=== PATIENT | female | born 2000 | race Caucasian/White ===

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

== ENCOUNTER 2019-11-25 09:42 | Outpatient (REF) | payer OTHER, SELFPAY ==
--- NOTE | 2019-11-25 09:05 | PAPFT_PTH ---
PATIENT: Ari Domingo LOC: RO U#:[id number] AGE/SX: 19/F ROOM: RE11/25/[address]: Wanda Sarabia NP : 2000 BED: DIS: 11/25/2019 SPEC #: [id number] RECD: 11/25/19 12:59 STATUS: MANISHA RECynthia #: [id number] CHICHI: 11/25/19 09:[address]: Wanda Sarabia NP DEPT: [facility] Cytology RECD BY: Ana Murray ENTERED: 11/25/19 12:59 SP TYPE: PAPFT OTHR DR: Jina Chacko Tissues: 1 - CX/ENDOCX FOR PAP SMEARS Procedures: PAP THIN PREP/[facility] Screening Comments: [id number]
== END 2019-11-25 10:02 ==
LOC: LBN 09:42
PROVIDERS: PCP Internal Medicine; Visit Provider Nurse Practitioner Women's Health
DX: Z12.4 Encounter for screening for malignant neoplasm of cervix (principal)
CPT/HCPCS: 88142

== ENCOUNTER 2019-12-13 09:13 | Outpatient (CLI) | payer OTHER, SELFPAY ==
[2019-12-16 12:40] LABS: SARS-CoV-2 RNA Undetected (Undetected); SARS-CoV-2 Specimen Source Nasopharynx
== END 2019-12-13 09:33 ==
PROVIDERS: PCP Internal Medicine; Visit Provider Advanced Practice Midwife
DX: Z11.59 Encounter for screening for other viral diseases (principal)
CPT/HCPCS: U0003

== ENCOUNTER 2020-07-29 03:34 | Outpatient (CLI) | payer BC, SELFPAY ==
[2020-07-29 14:38] LABS: TSH (W/Ref FT4) 3.25 uIU/mL (0.36-3.74)
== END 2020-07-29 03:35 | disposition home or self-care (01) ==
PROVIDERS: PCP Internal Medicine; Visit Provider Nurse Practitioner Women's Health
DX: N93.8 Other specified abnormal uterine and vaginal bleeding (principal)
CPT/HCPCS: 36415; 84443

== ENCOUNTER 2022-07-13 09:10 | Outpatient (REF) | payer OTHER, SELFPAY ==
--- NOTE | 2022-07-13 08:30 | PAPFT_PTH ---
PATIENT: Ari Domingo LOC: RO U#:[id number] AGE/SX: 22/F ROOM: RE07/13/[address]: Wanda Sarabia NP : 2000 BED: DIS: 07/13/2022 SPEC #: [id number] RECD: 07/13/22 13:04 STATUS: MANISHA REQ #: [id number] CHICHI: 07/13/22 08:[address]: Cornell ASCENCIO,Wanda DEPT: ON LICENSE OF [facility] Cytology RECD BY: Ana Murray ENTERED: 07/13/22 13:05 SP TYPE: PAPFT OTHR DR: Jina Chacko Tissues: 1 - CX/ENDOCX FOR PAP SMEARS Procedures: PAP THIN PREP/UVM Screening Comments: [id number] (CHLAMYDIA/GC)
[2022-07-14 13:45] LABS: Chlamydia Result Negative (Negative); GC Result Negative (Negative)
== END 2022-07-13 09:11 | disposition home or self-care (01) ==
LOC: LBN 09:10
PROVIDERS: PCP Internal Medicine; Visit Provider Nurse Practitioner Women's Health
DX: Z11.3 Encounter for screening for infections with a predominantly sexual mode of transmission (principal); Z12.4 Encounter for screening for malignant neoplasm of cervix
CPT/HCPCS: 87491; 87591; 88142

== ENCOUNTER 2022-12-06 10:34 | Outpatient (REF) | payer OTHER, SELFPAY ==
[2022-12-07 13:24] LABS: Chlamydia Result Negative (Negative); GC Result Negative (Negative)
== END 2022-12-06 10:35 | disposition home or self-care (01) ==
LOC: LBN 10:34
PROVIDERS: PCP Internal Medicine; Visit Provider Nurse Practitioner Women's Health
DX: N76.0 Acute vaginitis (principal); Z11.3 Encounter for screening for infections with a predominantly sexual mode of transmission
CPT/HCPCS: 87491; 87591; 87480; 87510; 87660

== ENCOUNTER 2023-07-31 14:27 | Outpatient (CLI) | payer BC, OTHER, SELFPAY ==
[2023-07-31 12:30] LABS: Abs Immature Grans 0.04 10^3/uL (0.0-0.06); Absolute Basophil Count 0.06 10^3/uL (0.0-0.2); Absolute Eosinophil Count 0.35 10^3/uL (0.0-0.7); Absolute Lymphocyte Count 2.16 10^3/uL (1.2-3.4); Absolute Monocyte Count 0.92 10^3/uL (0.1-0.8); Absolute Neutrophil Count 6.09 10^3/uL (1.2-6.7); Basophils % 0.6; Eosinophils % 3.6; HCT 41.8 % (36.0-46.0); HGB 13.7 g/dL (11.2-15.7); Immature Grans % 0.4; Lymphocytes % 22.5; MCH 28.1 pg (27.0-33.0); MCHC 32.8 % (32.0-36.0); MCV 86 fL (80-95); MPV 9.4 fL (8.0-11.0); Monocytes % 9.6; Neutrophils % 63.3; Platelet Count 266 10^3/uL (130-400); RBC 4.87 10^6/uL (3.93-5.22); RDW 11.7 % (11.7-14.6); RDW-SD 36.5 fL; WBC 9.62 10^3/uL (4.4-10.8)
[2023-07-31 13:30] LABS: Vitamin D 25 Total 19.6 ng/mL (30-100)
[2023-07-31 13:35] LABS: ALT 21 U/L (14-59); AST 13 U/L (15-37); Albumin 3.4 g/dL (3.4-5.0); Alkaline Phosphatase 77 U/L (46-116); Anion Gap 9.9 mmol/L (3-11); BUN 12 mg/dL (7-18); Bilirubin, Total 0.4 mg/dL (0.2-1.0); CO2 27.1 mmol/L (21.0-32.0); CREATININE 0.8 mg/dL (0.55-1.02); Calcium 9.1 mg/dL (8.5-10.1); Calculated LDL 90 mg/dL (<100); Chloride 105 mmol/L (98-107); Cholesterol 177 mg/dL (<200); Glucose 98 mg/dL (74-106); HDL Cholesterol 74 mg/dL (40-60); Potassium 4.2 mmol/L (3.5-5.1); Sodium 142 mmol/L (136-145); TSH (W/Ref FT4) 3.31 uIU/mL (0.36-3.74); Total Protein 7.4 g/dL (6.4-8.2); Triglyceride 65 mg/dL (<150); Vitamin B12 412 pg/mL (193-986)
[2023-07-31 13:55] LABS: Creatine Kinase 37 U/L (26-192); GGT 25 U/L (5-55)
[2023-07-31 22:16] LABS: Rheumatoid Factor <8.6 IU/mL (<12.0)
[2023-08-01 10:34] LABS: Hepatitis A Antibody IgM Negative (Negative); Hepatitis B Core Antibody Negative (Negative); Hepatitis B surface Ag Negative (Negative); Hepatitis C Ab w Rflx HCV PCR Negative (Negative)
[2023-08-02 14:56] LABS: ANA Interpretation Positive (Negative)
== END 2023-07-31 14:28 | disposition home or self-care (01) ==
LOC: LBO 14:28
PROVIDERS: PCP Internal Medicine; Visit Provider Nurse Practitioner Family
DX: E55.9 Vitamin D deficiency, unspecified (principal); D51.3 Other dietary vitamin B12 deficiency anemia; I10 Essential (primary) hypertension; E78.5 Hyperlipidemia, unspecified
CPT/HCPCS: 36415; 80053; 80061; 82306; 82550; 86704; 86709; 86803; 87340; 82607; 82977; 83036; 84443; 85025; 86038; 86431

== ENCOUNTER 2023-12-04 08:08 | Outpatient (REF) | payer BC, OTHER, SELFPAY ==
[2023-12-04 17:29] LABS: ESR 6 mm/hr (0-20)
[2023-12-04 19:17] LABS: Creatine Kinase 56 U/L (26-192)
[2023-12-05 20:59] LABS: Rheumatoid Factor <8.6 IU/mL (<12.0)
[2023-12-07 15:01] LABS: ANA Interpretation Positive (Negative)
== END 2023-12-04 08:09 | disposition home or self-care (01) ==
LOC: LBN 08:08
PROVIDERS: PCP Internal Medicine; Visit Provider Nurse Practitioner Family
DX: Z00.00 Encounter for general adult medical examination without abnormal findings (principal)
CPT/HCPCS: 82550; 85652; 86038; 86431

== ENCOUNTER 2024-01-03 02:19 | Outpatient (CLI) | payer BC, OTHER, SELFPAY ==
--- NOTE | 2024-01-03 | DI.RAD_ITS ---
Exam(s) XR CERVICAL SPINE COMP 4-5V EXAM: XR CERVICAL SPINE COMP 4-5V CLINICAL HISTORY: CHRONIC NECK PAIN. TECHNIQUE: 2D digital imaging was performed. Six images were obtained. AP, odontoid, lateral and howard ateral oblique images were obtained. COMPARISON: No exams were available for comparison FINDINGS: The odontoid is intact. The lateral masses are well aligned. There is straightening of the normal ce rvical lordosis. This may be due to muscle spasm or patient positioning. The vertebral bodies, disc spaces and posterior elements are well maintained. No acute fracture or subluxation is present. No significant neural foraminal stenosis is present. The cervical thoracic junction is well maintained. The prevertebral soft tissues are unremarkable. Lung apices are clear. IMPRESSION: Straightening of the normal cervical lordosis. This may be due to muscle spasm or patient positionin g. Otherwise unremarkable cervical spine series. DATA REPOSITORY: RADIATION DOSE DELIVERED:
== END 2024-01-03 02:39 ==
LOC: DI 02:19
PROVIDERS: PCP Internal Medicine; Visit Provider Nurse Practitioner Family
DX: M54.2 Cervicalgia (principal)
CPT/HCPCS: 72050

== ENCOUNTER 2024-07-05 11:15 | Outpatient (CLI) | payer OTHER, SELFPAY ==
[2024-07-05 11:30] LABS: Kit/Specimen SENT
[2024-07-05 12:49] LABS: Iron 59 ug/dL (50-170); Total Iron Binding Capacity 422 ug/dL (250-450); Transferrin Sat 14 % (15-50)
[2024-07-05 13:18] LABS: Ferritin 56 ng/mL (8-252); Folate 17.4 ng/mL (8.6-20.0); Magnesium 2.2 mg/dL (1.8-2.4); TSH 3.39 uIU/mL (0.36-3.74); Vitamin B12 501 pg/mL (193-986)
[2024-07-05 13:33] LABS: PHOSPHORUS 4.1 mg/dL (2.6-4.7)
[2024-07-05 17:28] LABS: Ionized Calcium 1.17 mmol/L (1.14-1.35)
[2024-07-05 17:47] LABS: CRP, High Sensitivity 9.53 mg/L (See Note)
[2024-07-05 18:03] LABS: T3,Free 3.3 pg/mL (2.8-5.3)
[2024-07-05 18:11] LABS: Homocysteine 7.3 umol/L (5.0-13.9)
[2024-07-05 18:18] LABS: T4, Free 1.4 ng/dL (0.8-2.2)
[2024-07-05 19:30] LABS: Thyroperoxidase Antibody 34 U/mL (<=60)
[2024-07-07 15:37] LABS: Lipoprotein (a) 36 nmol/L (<75)
[2024-07-08 10:04] LABS: EBNA IgG Positive (Negative); EBV Interpretation (See Note); VCA IgG Positive (Negative); VCA IgM Negative (Negative)
[2024-07-09 11:08] LABS: Riboflavin (Vitamin B2), P 7 mcg/L (1-19)
[2024-07-09 15:05] LABS: Apolipoprotein A1, S 193 mg/dL (>=140); Apolipoprotein B, S 91 mg/dL (See Comment); Apolipoprotein B/A 1 ratio 0.5 (See Comment)
[2024-07-09 21:25] LABS: Pyridoxal 5-Phosphate (PLP), P 21 mcg/L (5-50)
== END 2024-07-05 11:16 | disposition home or self-care (01) ==
LOC: LBO 11:15
PROVIDERS: PCP Nurse Practitioner Family; Visit Provider Naturopath
DX: R53.82 Chronic fatigue, unspecified (principal); M89.8X9 Other specified disorders of bone, unspecified site; Z13.220 Encounter for screening for lipoid disorders; R51.9 Headache, unspecified
CPT/HCPCS: 36415; 82172; 83090; 83695; 84252; 86141; 87799; 82330; 82607; 82728; 82746; 83540; 83550; 83735; 84100; 84207; 84439; 84443; 84481; 86140; 86376; 86664; 86665

== ENCOUNTER 2024-09-02 13:13 | Outpatient (CLI) | payer OTHER, SELFPAY ==
[2024-09-02 08:20] LABS: Abs Immature Grans 0.01 10^3/uL (0.0-0.06); Absolute Basophil Count 0.07 10^3/uL (0.0-0.2); Absolute Eosinophil Count 0.63 10^3/uL (0.0-0.7); Absolute Lymphocyte Count 2.76 10^3/uL (1.2-3.4); Absolute Monocyte Count 0.54 10^3/uL (0.1-0.8); Absolute Neutrophil Count 4.29 10^3/uL (1.2-6.7); Basophils % 0.8 %; Eosinophils % 7.6 %; HCT 41.6 % (36.0-46.0); HGB 14.2 g/dL (11.2-15.7); Immature Grans % 0.1 %; Lymphocytes % 33.3 %; MCH 28.5 pg (27.0-33.0); MCHC 34.1 % (32.0-36.0); MCV 83 fL (80-95); MPV 9.5 fL (8.0-11.0); Monocytes % 6.5 %; Neutrophils % 51.7 %; Platelet Count 327 10^3/uL (130-400); RBC 4.99 10^6/uL (3.93-5.22); RDW 12.2 % (11.7-14.6); RDW-SD 37.1 fL
[2024-09-02 08:21] LABS: ESR 5 mm/hr (0-20)
[2024-09-02 09:15] LABS: ALT 29 U/L (14-59); AST 20 U/L (15-37); Albumin 4.1 g/dL (3.4-5.0); Alkaline Phosphatase 58 U/L (46-116); Anion Gap 9.6 mmol/L (3-11); BUN 10 mg/dL (7-18); Bilirubin, Total 0.4 mg/dL (0.2-1.0); CO2 26.4 mmol/L (21.0-32.0); CREATININE 0.9 mg/dL (0.55-1.02); Calcium 10.1 mg/dL (8.5-10.1); Chloride 103 mmol/L (98-107); Estimated GFR 90.42 (mL/min/1.73m2); FREE T4 1.31 ng/dL (0.76-1.46); Ferritin 25 ng/mL (8-252); Glucose 89 mg/dL (74-106); Magnesium 2.1 mg/dL (1.8-2.4); PHOSPHORUS 3.2 mg/dL (2.6-4.7); Potassium 3.6 mmol/L (3.5-5.1); Sodium 139 mmol/L (136-145); TSH 5.62 uIU/mL (0.36-3.74); Total Protein 8.6 g/dL (6.4-8.2)
[2024-09-02 09:16] LABS: Folate > 20.0 ng/mL (8.6-20.0)
[2024-09-02 17:12] LABS: Ionized Calcium 1.22 mmol/L (1.14-1.35)
[2024-09-02 17:30] LABS: CRP, High Sensitivity 5.13 mg/L (See Note)
[2024-09-02 17:44] LABS: T3,Free 3.8 pg/mL (2.8-5.3)
[2024-09-02 19:26] LABS: Homocysteine 6.7 umol/L (5.0-13.9)
[2024-09-02 20:13] LABS: Thyroperoxidase Antibody <28 U/mL (<=60)
[2024-09-03 18:41] LABS: Iron 110 ug/dL (50-170); Total Iron Binding Capacity 471 ug/dL (250-450); Transferrin Sat 23 % (15-50)
[2024-09-03 19:01] LABS: Vitamin B12 704 pg/mL (193-986)
[2024-09-04 10:50] LABS: EBNA IgG Positive (Negative); EBV Interpretation (See Note); VCA IgG Positive (Negative); VCA IgM Negative (Negative)
[2024-09-04 12:29] LABS: Lipoprotein (a) 48 nmol/L (<75)
[2024-09-05 02:01] LABS: Riboflavin (Vitamin B2), P 7 mcg/L (1-19)
[2024-09-05 14:37] LABS: Apolipoprotein A1, S 204 mg/dL (>=140); Apolipoprotein B, S 88 mg/dL (See Comment); Apolipoprotein B/A 1 ratio 0.4 (See Comment)
[2024-09-06 15:41] LABS: Pyridoxal 5-Phosphate (PLP), P 20 mcg/L (5-50)
== END 2024-09-02 13:14 | disposition home or self-care (01) ==
LOC: LBO 13:14
PROVIDERS: PCP Nurse Practitioner Family; Visit Provider Naturopath
DX: M89.8X9 Other specified disorders of bone, unspecified site (principal); R53.82 Chronic fatigue, unspecified; Z13.220 Encounter for screening for lipoid disorders; R51.9 Headache, unspecified
CPT/HCPCS: 36415; 80053; 82172; 83090; 83695; 84252; 85652; 86141; 82330; 82607; 82728; 82746; 83540; 83550; 83735; 84100; 84207; 84439; 84443; 84481; 85025; 86376; 86664; 86665

== ENCOUNTER 2024-09-28 08:34 | Emergency (ER) | payer OTHER, SELFPAY ==
[2024-09-28 08:39] VITALS: BP 120/85; PULSE 82; RESP 18; TEMP 36.9; O2SAT 100
[2024-09-28 08:42] VITALS: BP 120/85; PULSE 82; RESP 18; TEMP 36.9; O2SAT 100
--- NOTE | 2024-09-28 08:45 | DI.CT_ITS ---
Exam(s) CT ABDOMEN PELVIS W EXAM: CT ABDOMEN PELVIS W CLINICAL HISTORY: epigastric tenderness TECHNIQUE: Imaging Protocol: Axial computed tomography images with coronal and sagittal reformatted images were created and reviewed. CONTRAST MATERIAL: Intravenous: Omnipaque 350 contrast volume:75 mL Oral: No COMPARISON: US US PELVIS TRANSVAGINAL from 08/05/2020 FINDINGS: ABDOMEN: Lung Bases: No acute abnormality. Liver: Normal density. No measurable mass. Portal, Superior Mesenteric, and Splenic Veins: Unremarkable. Gallbladder and Biliary Tract: No radiodense calculus or dilation. Pancreas: Normal density, no abnormal calcifications or inflammatory process. Spleen: Normal. Adrenals: No masses seen. Kidneys: Normal size, contour and axis. Left nephrolithiasis. No obstructive uropathy. No masses se en. Abdominal Aorta: Abdominal portion non-dilated. Bowel: The stomach is incompletely distended limiting evaluation. There is no evidence of bowel wall thickening or obstruction. No evidence of an acute appendicitis. Peritoneal Cavity: No ascites, collection or mesenteric inflammatory response. No free air. Lymph Nodes: Within normal limits. Bones: Within normal limits for the patient's age. Soft Tissues: Unremarkable. PELVIS: Bladder: Symmetric distention, no gross wall thickening. Reproductive Organs: There is a pessary in place. There are prominent vessels around the uterus rais ing the question of pelvic congestion syndrome. Lymph Nodes: Within normal limits. Bones: Within normal limits for the patient's age. IMPRESSION: 1. No acute abdominal or pelvic process. 2. Left nephrolithiasis. No hydronephrosis. 3. Findings suggestive of pelvic congestion syndrome. RADIATION DOSE DELIVERED: 312.27mGy.cm Total DLP DATA REPOSITORY: All CT scans at this facility are submitted to the National Radiology Data Registry (NRDR) Dose Index Registry (DIR) with the [employer] (A[employer]). RADIATION OPTIMIZATION: All CT scans at this facility use at least one of these dose optimization te chniques: automated exposure control; mA and/or kV adjustment per patient size (includes targeted exa ms where dose is matched to clinical indication); or iterative reconstruction.
[2024-09-28 09:13] LABS: Lactate 0.6 mmol/L (<or=2.0)
[2024-09-28 09:15] LABS: Abs Immature Grans 0.02 10^3/uL (0.0-0.06); Absolute Basophil Count 0.05 10^3/uL (0.0-0.2); Absolute Eosinophil Count 0.49 10^3/uL (0.0-0.7); Absolute Lymphocyte Count 2.46 10^3/uL (1.2-3.4); Absolute Monocyte Count 0.49 10^3/uL (0.1-0.8); Absolute Neutrophil Count 3.82 10^3/uL (1.2-6.7); Basophils % 0.7 %; Eosinophils % 6.7 %; HCT 39.1 % (36.0-46.0); HGB 13.1 g/dL (11.2-15.7); Immature Grans % 0.3 %; Lymphocytes % 33.6 %; MCH 27.7 pg (27.0-33.0); MCHC 33.5 % (32.0-36.0); MCV 83 fL (80-95); MPV 9.2 fL (8.0-11.0); Monocytes % 6.7 %; Platelet Count 266 10^3/uL (130-400); RBC 4.73 10^6/uL (3.93-5.22); RDW 11.7 % (11.7-14.6); RDW-SD 35.1 fL; WBC 7.33 10^3/uL (4.4-10.8)
[2024-09-28 09:23] LABS: Bilirubin Negative (Negative); Blood Negative (Negative); Clarity Sl Cloudy (Clear); Glucose Negative (Negative); Ketones Negative (Negative); Leukocyte Esterase Small (Negative); Nitrite Negative (Negative); Urobilinogen 0.2 mg/dL (Up to 0.2)
[2024-09-28 09:37] LABS: ALT 23 U/L (14-59); AST 17 U/L (15-37); Albumin 3.5 g/dL (3.4-5.0); Alkaline Phosphatase 63 U/L (46-116); Anion Gap 8.3 mmol/L (3-11); BUN 14 mg/dL (7-18); Bilirubin, Total 0.4 mg/dL (0.2-1.0); CO2 27.7 mmol/L (21.0-32.0); CREATININE 0.9 mg/dL (0.55-1.02); Calcium 9.1 mg/dL (8.5-10.1); Chloride 104 mmol/L (98-107); Estimated GFR 90.42 (mL/min/1.73m2); Glucose 83 mg/dL (74-106); Lipase 33 U/L (<78); Potassium 3.9 mmol/L (3.5-5.1); Sodium 140 mmol/L (136-145); Total Protein 7.5 g/dL (6.4-8.2)
[2024-09-28] MEDS: Normal Saline - Diluent 50 ML VIAL IJ (09:37)
[2024-09-28] MEDS: Omnipaque 350 MG/ML 100 ML BTL IJ (09:38)
[2024-09-28 09:40] LABS: Troponin I < 4 ng/L (<or=51)
[2024-09-28 09:48] LABS: Bacteria Few HPF (Negative); C & S Indicated? No; Casts Negative LPF (Negative); Crystals Moderate Amorphous HPF (Negative); Epithelial Cells Moderate HPF (Negative); Mucus Moderate (Negative); RBC 0-2 HPF (0-2)
[2024-09-28 10:06] VITALS: BP 115/73; PULSE 78; RESP 18; O2SAT 98
[2024-09-28 10:27] LABS: Troponin I < 4 ng/L (<or=51)
--- NOTE | 2024-09-28 10:35 | W.ED.GENAD ---
Discharge Plan Disposition Patient Disposition: Home Discharge Details Clinical Impression: Epigastric abdominal pain Primary Care Provider: Dee Burgos ED Provider: Rush Lawrence Home Meds and New Rx's Prescriptions: No Action epinephrine [EpiPen 2-Josh] 0.3 mg/0.3 mL auto-injector 0.3 mg IM ONCE Multiple Vitamin, Womens Tablet 1 tab PO BID cyclobenzaprine 5 mg tablet 5 mg PO TID PRN fluticasone propionate [Children's Flonase Allergy Rlf] 50 mcg/actuation spray,suspension 1 spray intranasal BID 14 Days Qty: 16 1RF Rx Instructions: administer into each nostril etonogestrel-ethinyl estradiol [NuvaRing] 0.12-0.015 mg/24 hr ring 1 vag ring vaginal Q4W Qty: 3 5RF Rx Instructions: leave in place for 3 weeks of a 4-week cycle bupropion HCl [Wellbutrin SR] 150 MG tablet extended release 12 hr 150 mg PO BID cetirizine 10 mg tablet 10 mg PO DAILY PRN ondansetron HCl 4 mg tablet 4 mg PO Q8H PRN (Reason: nausea and vomiting) Qty: 30 1RF Discharge Instructions Instructions: Abdominal Pain, Adult ED Additional Instructions: You were seen in the emergency department for your epigastric abdominal pain it is possible you have gastritis, try taking [id number] Pepcid twice a day for 2 to 3 weeks to see if this relieves your pain. Otherwise there is no sign of any emergent process on all your labs and imaging today, there is no elevation of white blood cells, liver/pancreas/kidney enzymes are normal there is no sign of any emergent process, please return for any severe increase in pain especially with fever, intractable nausea or vomiting or any other emergent concerns. Referrals: Dee Burgos [Primary Care Provider] - Discharge Data Discharge Date/Time-TO BE ENTERED AT DEPARTURE: 09/28/24 11:17 HPI General Date/Time Provider Initiated Documentation: 09/28/24 08:35. HPI Narrative: 24 year-old female presents to ED today by POV/ambulating with a chief complaint of sudden onset abdominal pain radiating to her back with onset around 0800 today. Quality described as sharp pains, no radiation to nausea/vomiting/diarrhea, chest pain, shortness of breath, near syncope, constipation, fever. Severity is described as severe. Palliating factors include nothing specific attempted. Provoking factors include nothing specific. Patient not anticoagulated. Related Data Home Medications ?Medication ?Instructions ?Recorded ?Confirmed bupropion HCl 150 mg tablet,12 hr 150 mg PO BID 11/29/17 09/28/24 sustained-release (Wellbutrin SR) epinephrine 0.3 mg/0.3 mL 0.3 mg IM ONCE 06/13/18 09/28/24 injection, auto-injector (EpiPen 2-Josh) [id number]-minerals 1 tab PO BID 11/25/19 09/28/24 (Multiple Vitamin, Womens tablet) cyclobenzaprine 5 mg tablet 5 mg PO TID PRN 05/29/24 09/28/24 cetirizine 10 mg tablet 10 mg PO DAILY PRN 06/20/24 09/28/24 ondansetron HCl 4 mg tablet 4 mg PO Q8H PRN nausea and 08/02/24 09/28/24 vomiting #30 tabs fluticasone propionate 50 1 spray intranasal BID 2 weeks #16 09/13/24 09/28/24 mcg/actuation nasal grams spray,suspension (Children's Flonase Allergy Relief) etonogestrel 0.12 mg-ethinyl 1 vag ring vaginal Q4W #3 ea 09/18/24 09/28/24 estradiol 0.015 mg/24 hr vaginal ring (NuvaRing) Previous Rx's ?Medication ?Instructions ?Recorded ondansetron HCl 4 mg tablet 4 mg PO Q8H PRN nausea and 08/02/24 vomiting #30 tabs fluticasone propionate 50 1 spray intranasal BID 2 weeks #16 09/13/24 mcg/actuation nasal grams spray,suspension (Children's Flonase Allergy Relief) etonogestrel 0.12 mg-ethinyl 1 vag ring vaginal Q4W #3 ea 09/18/24 estradiol 0.015 mg/24 hr vaginal ring (NuvaRing) Allergies Allergy/AdvReac Type Severity Reaction Status Date / Time micah flavor Allergy Unknown Verified 09/28/24 08:42 peanut Allergy lips Verified 09/28/24 08:42 swell/tongue tingles General Stated Complaint: Abd Prob DIONTE: 3 Review of Systems All systems reviewed & are unremarkable except as noted in HPI and below Exam Narrative Exam Narrative: GENERAL APPEARANCE: Well-nourished, non-toxic, awake and alert, atraumatic, no acute distress. SKIN: Warm, pink, dry, intact, without rashes/lesions/ulcerations. HEAD: Normocephalic, atraumatic, normal hair distribution for gender/age. EYES: Normal conjunctiva, no exudates on lids/lashes. ENT: Nares patent, no circumoral cyanosis, no facial swelling NECK: Supple, trachea midline, painless cervical ROM. LUNGS/CHEST: Lungs CTA bilaterally, non-labored respirations, normal A/P diameter, symmetrical expansion, no chest wall deformity HEART (CV/PV): Regular rate and rhythm without murmur, no peripheral edema, no JVD. ABDOMEN: Soft, non-distended, no guarding, epigastric tenderness. MSK: Normal ROM, no swelling/deformity to bilateral UEs or LEs, moving all extremities without weakness, no cyanosis, spine midline without tenderness, normal curvature. NEURO: Mental Status AAOx4 - alert to person, place, time, events No facial droop, no forehead involvement. Motor: No focal weakness - strength 5/5 in bilateral UEs and LEs, proximal and distal, symmetric. Sensory: sensation intact to light touch globally. Gait normal: patient ambulated without ataxia into ED room. PSYCH: euthymic, cooperative, pleasant, appropriate speech Course Vital Signs Vital signs: Vital Signs Temperature 36.9 C 09/28/24 08:39 Pulse 82 09/28/24 08:39 Respiratory Rate 18 09/28/24 08:39 Blood Pressure 120/85 09/28/24 08:39 Pulse Oximetry 100 09/28/24 08:39 Temperature 36.9 C 09/28/24 08:42 Temperature Source Oral 09/28/24 08:42 Pulse 78 09/28/24 10:06 Respiratory Rate 18 09/28/24 10:06 Respiratory Effort Normal, Non-Labored 09/28/24 10:06 Respiratory Depth Normal 09/28/24 10:06 Respiratory Pattern Normal 09/28/24 10:06 Blood Pressure 115/73 09/28/24 10:06 Blood Pressure Mean 87 09/28/24 10:06 Blood Pressure Position Sitting 09/28/24 10:06 Pulse Oximetry 98 09/28/24 10:06 Oxygen Delivery Method Room Air 09/28/24 10:06 Oxygen Flow Rate 0 09/28/24 10:06 Lab/Test Results Lab/Test Results: Laboratory Tests Range/Units 09/28/24 09/28/24 09/28/24 09:05 09:16 10:04 WBC (4.4-10.8) 10^3/uL 7.33 RBC (3.93-5.22) 10^6/uL 4.73 Hgb (11.2-15.7) g/dL 13.1 Hct (36.0-46.0) % 39.1 MCV (80-95) fL 83 MCH (27.0-33.0) pg 27.7 MCHC (32.0-36.0) % 33.5 RDW (11.7-14.6) % 11.7 Plt Count (130-400) 10^3/uL 266 MPV (8.0-11.0) fL 9.2 Immature Gran % % 0.3 Neutrophils % % 52.0 Lymphocytes % % 33.6 Monocytes % % 6.7 Eosinophils % % 6.7 Basophils % % 0.7 Nucleated RBC % (0.0-0.3) % 0.0 Absolute Neutrophils (1.2-6.7) 10^3/uL 3.82 Absolute Lymphocytes (1.2-3.4) 10^3/uL 2.46 Absolute Monocytes (0.1-0.8) 10^3/uL 0.49 Absolute Eosinophils (0.0-0.7) 10^3/uL 0.49 Absolute Basophils (0.0-0.2) 10^3/uL 0.05 VBG Lactate (<or=2.0) mmol/L 0.6 Sodium (136-145) mmol/L 140 Potassium (3.5-5.1) mmol/L 3.9 Chloride (98-107) mmol/L 104 Carbon Dioxide (21.0-32.0) mmol/L 27.7 Anion Gap (3-11) mmol/L 8.3 BUN (7-18) mg/dL 14 Creatinine (0.55-1.02) mg/dL 0.9 Est GFR (CKD-EPI 2020) (mL/min/1.73m2) 90.42 Glucose (74-106) mg/dL 83 Calcium (8.5-10.1) mg/dL 9.1 Total Bilirubin (0.2-1.0) mg/dL 0.4 AST (15-37) U/L 17 ALT (14-59) U/L 23 Alkaline Phosphatase (46-116) U/L 63 Troponin I (<or=51) ng/L < 4 < 4 Total Protein (6.4-8.2) g/dL 7.5 Albumin (3.4-5.0) g/dL 3.5 Lipase (<78) U/L 33 Urine Color (Yellow) Yellow Urine Clarity (Clear) Sl Cloudy Urine pH (5-8) 7.0 Ur Specific [place] (1.005-1.025) 1.020 Urine Protein (Neg-Trace) mg/dL Negative Urine Ketones (Negative) mg/dL Negative Urine Blood (Negative) Negative Urine Nitrite (Negative) Negative Urine Bilirubin (Negative) Negative Urine Urobilinogen (Up to 0.2) mg/dL 0.2 Ur Leukocyte Esterase (Negative) Small H Urine RBC (0-2) HPF 0-2 Urine WBC (0-5) HPF 5-10 Ur Epithelial Cells (Negative) HPF Moderate Urine Crystals (Negative) HPF Moderate Amorphous Urine Bacteria (Negative) HPF Few Urine Casts (Negative) LPF Negative Urine Mucus (Negative) Moderate Ur Culture Indicated? No Urine Glucose (Negative) mg/dL Negative POC- Test(urine) Negative Medical Decision Making This dictation utilizes [id number] dictation software and may contain unedited grammatical errors. 24 year-old female presents to ED today by POV/ambulating with a chief complaint of sudden onset abdominal pain radiating to her back with onset around 0800 today. Quality described as sharp pains- epigastric , no radiation to nausea/vomiting/diarrhea, chest pain, shortness of breath, near syncope, constipation, fever. Severity is described as severe. Palliating factors include nothing specific attempted. Provoking factors include nothing specific. Patients' medical history: Fibromyalgia, irregular periods. Family and social history: Noncontributory. Pertinent exam findings / vital signs include epigastric tenderness without overt Moore sign, no CVA tenderness to percussion bilaterally, no other abdominal tenderness, benign cardiopulmonary exam. Differential / pathologies of concern include pancreatitis, gastritis, gastroenteritis, PUD, sepsis, atypical chest pain. Diagnostic studies of: - CBC, CMP, lactate, serial troponins, lipase, UA, CT ABD/pelvis with contrast. - CBC shows no leukocytosis - Lactate negative - CMP is normal - Serial troponins negative - Lipase negative - UA without signs of UTI - CT shows no acute pathology to explain the patient's epigastric pain Interventions of: - IVP ketorolac with improvement. ED Course/Assessment/Plan: 24-year-old female presents with sudden onset epigastric abdominal pain radiating to her back onset this morning, workup is completely benign including negative CT and reassuring labs, no pancreatitis, I do suspect the patient is experiencing some pain of gastritis and I recommended an [id number] trial of Pepcid twice a day for 2 to 2-1/2 weeks for trial of relief, I stressed strict return criteria for any intractable nausea or vomiting, severe increase in pain, shortness of breath, near syncope or any other emergent concerns, recommend she follow-up with PCP for possible endoscopy at some point. Findings not consistent with perforated viscus, sepsis, atypical ACS, pancreatitis, UTI, electrolyte abnormality, pelvic pathology. Disposition of Epigastric Abdominal Pain. Patient verbalized understanding of the plan and return to ED criteria and engaged in shared decision making. Medical Records Medical records reviewed: Yes I reviewed the patient's medical records. Imaging Data Radiologic Study: Attestation: I personally reviewed and interpreted this imaging study as follows: Imaging: CT Scan Radiologist's impression: EXAM: CT ABDOMEN PELVIS W CLINICAL HISTORY: epigastric tenderness TECHNIQUE: Imaging Protocol: Axial computed tomography images with coronal and sagittal reformatted images were created and reviewed. CONTRAST MATERIAL: Intravenous: Omnipaque 350 contrast volume:75 mL Oral: No COMPARISON: US US PELVIS TRANSVAGINAL from 08/05/2020 FINDINGS: ABDOMEN: Lung Bases: No acute abnormality. Liver: Normal density. No measurable mass. Portal, Superior Mesenteric, and Splenic Veins: Unremarkable. Gallbladder and Biliary Tract: No radiodense calculus or dilation. Pancreas: Normal density, no abnormal calcifications or inflammatory process. Spleen: Normal. Adrenals: No masses seen. Kidneys: Normal size, contour and axis. Left nephrolithiasis. No obstructive uropathy. No masses seen. Abdominal Aorta: Abdominal portion non-dilated. Bowel: The stomach is incompletely distended limiting evaluation. There is no evidence of bowel wall thickening or obstruction. No evidence of an acute appendicitis. Peritoneal Cavity: No ascites, collection or mesenteric inflammatory response. No free air. Lymph Nodes: Within normal limits. Bones: Within normal limits for the patient's age. Soft Tissues: Unremarkable. PELVIS: Bladder: Symmetric distention, no gross wall thickening. Reproductive Organs: There is a pessary in place. There are prominent vessels around the uterus raising the question of pelvic congestion syndrome. Lymph Nodes: Within normal limits. Bones: Within normal limits for the patient's age. IMPRESSION: 1. No acute abdominal or pelvic process. 2. Left nephrolithiasis. No hydronephrosis. 3. Findings suggestive of pelvic congestion syndrome. Lab Data Lab results reviewed: Yes I reviewed the patient's lab results. Labs: Laboratory Tests Range/Units 09/28/24 09/28/24 09/28/24 09:05 09:16 10:04 WBC (4.4-10.8) 10^3/uL 7.33 RBC (3.93-5.22) 10^6/uL 4.73 Hgb (11.2-15.7) g/dL 13.1 Hct (36.0-46.0) % 39.1 MCV (80-95) fL 83 MCH (27.0-33.0) pg 27.7 MCHC (32.0-36.0) % 33.5 RDW (11.7-14.6) % 11.7 Plt Count (130-400) 10^3/uL 266 MPV (8.0-11.0) fL 9.2 Immature Gran % % 0.3 Neutrophils % % 52.0 Lymphocytes % % 33.6 Monocytes % % 6.7 Eosinophils % % 6.7 Basophils % % 0.7 Nucleated RBC % (0.0-0.3) % 0.0 Absolute Neutrophils (1.2-6.7) 10^3/uL 3.82 Absolute Lymphocytes (1.2-3.4) 10^3/uL 2.46 Absolute Monocytes (0.1-0.8) 10^3/uL 0.49 Absolute Eosinophils (0.0-0.7) 10^3/uL 0.49 Absolute Basophils (0.0-0.2) 10^3/uL 0.05 VBG Lactate (<or=2.0) mmol/L 0.6 Sodium (136-145) mmol/L 140 Potassium (3.5-5.1) mmol/L 3.9 Chloride (98-107) mmol/L 104 Carbon Dioxide (21.0-32.0) mmol/L 27.7 Anion Gap (3-11) mmol/L 8.3 BUN (7-18) mg/dL 14 Creatinine (0.55-1.02) mg/dL 0.9 Est GFR (CKD-EPI 2020) (mL/min/1.73m2) 90.42 Glucose (74-106) mg/dL 83 Calcium (8.5-10.1) mg/dL 9.1 Total Bilirubin (0.2-1.0) mg/dL 0.4 AST (15-37) U/L 17 ALT (14-59) U/L 23 Alkaline Phosphatase (46-116) U/L 63 Troponin I (<or=51) ng/L < 4 < 4 Total Protein (6.4-8.2) g/dL 7.5 Albumin (3.4-5.0) g/dL 3.5 Lipase (<78) U/L 33 Urine Color (Yellow) Yellow Urine Clarity (Clear) Sl Cloudy Urine pH (5-8) 7.0 Ur Specific [place] (1.005-1.025) 1.020 Urine Protein (Neg-Trace) mg/dL Negative Urine Ketones (Negative) mg/dL Negative Urine Blood (Negative) Negative Urine Nitrite (Negative) Negative Urine Bilirubin (Negative) Negative Urine Urobilinogen (Up to 0.2) mg/dL 0.2 Ur Leukocyte Esterase (Negative) Small H Urine RBC (0-2) HPF 0-2 Urine WBC (0-5) HPF 5-10 Ur Epithelial Cells (Negative) HPF Moderate Urine Crystals (Negative) HPF Moderate Amorphous Urine Bacteria (Negative) HPF Few Urine Casts (Negative) LPF Negative Urine Mucus (Negative) Moderate Ur Culture Indicated? No Urine Glucose (Negative) mg/dL Negative Quality:SDOH Health Related Social Needs: No Data to Display PFSH All Active Problems (Updated 09/28/24 @ 10:54 by ASHA Dobbs) Epigastric abdominal pain (Acute) Chronic sinusitis (Acute) Chronic rhinitis (Acute) General counseling and advice for contraceptive management (Acute) [id number]. Xulane patch. 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 Exposure to viral disease Surgical History ZYGOMATIC FX REPAIR 04/13/15 [facility] [place] Family History Mother No problems noted. Father Diabetes Hyperlipidemia Maternal Aunt Neoplasm BREAST Brother No problems noted. Brother No problems noted. Grandfather Essential hypertension Hyperlipidemia Grandfather Diabetes Essential hypertension Hyperlipidemia Stroke Grandmother No problems noted. Grandmother Hyperlipidemia Social History Smoking/Tobacco Use Status: Former Tobacco Use Tobacco: How many years used: 3 Second Hand Exposure: No Smoking risk assessment performed?: Yes Alcohol Intake: never Drug use: Daily Substance use type: marijuana Number of Children: 0 Education Level: college Details: VTC. Do you need help understanding health information?: Never current occupation: RN Sexually active: Yes Do you think of yourself as: straight/heterosexual Current gender identity: female What type of physical activity do you participate in: none Seatbelt use: always Helmet use: Yes Drive intox or ride w/intox driver material handler: No Do you feel safe at home: Yes Do you feel safe in your relationship?: Yes Female Reproductive History Menstrual control method: vaginal ring History History 0 Para Hx # Term Pregnancies Multiple births Hx # Pregnancies Ectopic pregnancies AB induced Hx Number of Living Children AB spontaneous
[2024-09-28] MEDS: Ketorolac 15 MG/ML VIAL IVP (10:47)
[2024-09-28 11:01] VITALS: BP 127/87; PULSE 81; RESP 18; O2SAT 99
== END 2024-09-28 11:17 | disposition home or self-care (01) ==
PROVIDERS: Emergency Provider Physician Assistant; PCP Nurse Practitioner Family
DX: R10.13 Epigastric pain (principal); Z87.891 Personal history of nicotine dependence
CPT/HCPCS: 80053; 83690; 96374; 99285; 74177; 81003; 81015; 83605; 84484; 85025; 99284; J1885; J3490

== ENCOUNTER 2024-11-12 09:57 | Outpatient (CLI) | payer OTHER, SELFPAY ==
[2024-11-12 11:10] LABS: Iron 46 ug/dL (50-170); Total Iron Binding Capacity 451 ug/dL (250-450); Transferrin Sat 10 % (15-50)
[2024-11-12 11:43] LABS: ALT 23 U/L (14-59); AST 14 U/L (15-37); Albumin 3.4 g/dL (3.4-5.0); Alkaline Phosphatase 55 U/L (46-116); Anion Gap 5.3 mmol/L (3-11); BUN 12 mg/dL (7-18); Bilirubin, Total 0.3 mg/dL (0.2-1.0); CO2 29.7 mmol/L (21.0-32.0); Calcium 9.2 mg/dL (8.5-10.1); Chloride 105 mmol/L (98-107); Estimated GFR 104.15 (mL/min/1.73m2); Folate 18.1 ng/mL (8.6-20.0); Glucose 78 mg/dL (74-106); Potassium 4.2 mmol/L (3.5-5.1); Sodium 140 mmol/L (136-145); TSH 3.66 uIU/mL (0.36-3.74); Total Protein 7.6 g/dL (6.4-8.2); Vitamin B12 609 pg/mL (193-986); Vitamin D 25 Total 34 ng/mL (30-100)
[2024-11-12 12:09] LABS: Ferritin 11 ng/mL (8-252)
[2024-11-12 12:32] LABS: C-Reactive Protein < 0.50 mg/dL (<or=0.5)
[2024-11-12 18:06] LABS: T3,Free 3.5 pg/mL (2.8-5.3)
== END 2024-11-12 09:58 | disposition home or self-care (01) ==
LOC: LBO 09:57
PROVIDERS: PCP Nurse Practitioner Family; Visit Provider Naturopath
DX: E55.9 Vitamin D deficiency, unspecified (principal); M89.8X9 Other specified disorders of bone, unspecified site; R79.89 Other specified abnormal findings of blood chemistry
CPT/HCPCS: 36415; 80053; 82306; 82607; 82728; 82746; 83540; 83550; 84439; 84443; 84481; 86140; 86376

== ENCOUNTER 2025-01-20 16:03 | Outpatient (REF) | payer OTHER, SELFPAY | END 2025-01-20 16:04 | disposition home or self-care (01) | LOC: LBN 16:03 | PROVIDERS: PCP Nurse Practitioner Family; Visit Provider Nurse Practitioner Women's Health | DX: N76.0 Acute vaginitis (principal) | CPT/HCPCS: 87480; 87510; 87660 ==

== ENCOUNTER 2025-02-18 08:01 | Outpatient (CLI) | payer OTHER, SELFPAY ==
[2025-02-18 07:51] LABS: Abs Immature Grans 0.01 10^3/uL (0.0-0.06); HCT 41.3 % (36.0-46.0); HGB 13.9 g/dL (11.2-15.7); Immature Grans % 0.1 %; MCH 27.4 pg (27.0-33.0); MCHC 33.7 % (32.0-36.0); MCV 82 fL (80-95); MPV 9.2 fL (8.0-11.0); Platelet Count 259 10^3/uL (130-400); RBC 5.07 10^6/uL (3.93-5.22); RDW 12.1 % (11.7-14.6); RDW-SD 35.6 fL; WBC 8.37 10^3/uL (4.4-10.8)
[2025-02-18 08:43] LABS: Iron 65 ug/dL (50-170); Total Iron Binding Capacity 396 ug/dL (250-450); Transferrin Sat 16 % (15-50)
[2025-02-18 08:45] LABS: Ferritin 30 ng/mL (8-252); Folate > 20.0 ng/mL (8.6-20.0); TSH 5.51 uIU/mL (0.36-3.74); Vitamin B12 520 pg/mL (193-986); Vitamin D 25 Total 35 ng/mL (30-100)
== END 2025-02-18 08:02 | disposition home or self-care (01) ==
LOC: LBO 08:02
PROVIDERS: PCP Nurse Practitioner Family; Visit Provider Naturopath
DX: Z13.89 Encounter for screening for other disorder (principal); E61.1 Iron deficiency; E55.9 Vitamin D deficiency, unspecified
CPT/HCPCS: 36415; 82306; 82607; 82728; 82746; 83540; 83550; 84443; 85025

== ENCOUNTER 2025-04-14 10:20 | Outpatient (REF) | payer OTHER, SELFPAY | END 2025-04-14 10:21 | disposition home or self-care (01) | LOC: LBN 10:20 | PROVIDERS: PCP Nurse Practitioner Family; Visit Provider Advanced Practice Midwife | DX: O23.599 Infection of other part of genital tract in pregnancy, unspecified trimester (principal); B96.89 Other specified bacterial agents as the cause of diseases classified elsewhere | CPT/HCPCS: 87480; 87510; 87660 ==